=== PATIENT | female | born 1985 | race Caucasian/White ===

== ENCOUNTER 2017-02-10 10:46 | Day surgery (SDC) | payer MEDICAID ==
[2017-02-07 16:10] VITALS: BMI 32.2
[2017-02-08 14:00] LABS: ADD SCAN DIFF NO
[2017-02-08 14:04] LABS: BASOPHILS % 0.1 % (0.0-2.0); EOSINOPHILS # 0.3 10^3/ul (0.0-0.5); EOSINOPHILS % 4.6 % (0.0-7.0); HEMATOCRIT 39.1 % (37.0-47.0); HEMOGLOBIN 13.1 g/dl (12.0-16.0); LYMPHOCYTES # 3.4 10^3/ul (0.8-2.9); MEAN CORPUSCULAR HEMOGLOBIN 29.5 pg (29.0-33.0); MEAN CORPUSCULAR HGB CONC 33.5 g/dl (32.0-37.0); MEAN CORPUSCULAR VOLUME 88.1 fl (82.0-101.0); MEAN PLATELET VOLUME 10.1 fl (7.4-10.4); MONOCYTE # 0.5 10^3/ul (0.3-0.9); MONOCYTES % 6.7 % (0.0-11.0); NEUTROPHIL # 2.6 10^3/ul (1.6-7.5); NEUTROPHILS % 38.5 % (39.0-77.0); PLATELET COUNT 273 10^3/UL (140-415); RED BLOOD COUNT 4.44 10^6/ul (4.20-5.40); RED CELL DISTRIBUTION WIDTH 12.8 % (11.5-14.5); WHITE BLOOD COUNT 6.7 10^3/ul (4.8-10.8)
[2017-02-08 14:18] LABS: INR 0.97; PARTIAL THROMBOPLASTIN TIME 27.5 Sec (25.0-35.0); PROTIME 12.9 Sec (12.2-14.2)
[2017-02-08 14:23] LABS: ALBUMIN 4.1 g/dl (3.3-4.9)
[2017-02-08 14:26] LABS: ALBUMIN/GLOBULIN RATIO 1.28; BILIRUBIN,INDIRECT 0.1 mg/dl (0-1.1); BILIRUBIN,TOTAL 0.1 mg/dl (0.2-1.3); TOTAL PROTEIN 7.3 g/dl (6.1-8.1)
[2017-02-08 14:33] LABS: CALCIUM 9.5 mg/dl (8.4-10.2); CREATININE 0.6 mg/dl (0.44-1.00); POTASSIUM 4.3 mmol/L (3.5-5.1)
--- NOTE | 2017-02-09 18:18 | PREOPHP ---
DATE OF ADMISSION: 02/10/2017 REASON FOR ADMISSION: Patient is to be admitted tomorrow for laparoscopic bilateral tubal ligation, 02/10/2017. HISTORY OF PRESENT ILLNESS: This is a 31-year-old female, 3, para 3, who had 3 normal vagin al deliveries and has requested sterilization on the basis of multiparity. She is brought in for a laparoscopic bilateral tubal ligation under general anesthesia. The procedure was discussed with th e patient in the office at great length. Alternatives, benefits, risks, and possible complications, as well as 1% failure rate, were discussed with her. She was allowed to ask questions, and all her questions were answered to her satisfaction. She signed the appropriate surgical informed consent. PAST MEDICAL HISTORY: The patient denies any medical problems including diabetes, cardiac disease, liver disease, renal disease, thyroid disease, and neurological problems. ALLERGIES: SHE HAS NO KNOWN ALLERGIES. MEDICATIONS: Takes no medications on a regular basis. FAMILY HISTORY: Noncontributory. REVIEW OF SYSTEMS: A 12-point review of systems is noncontributory. PHYSICAL EXAMINATION: GENERAL: Well-developed and nourished, in no distress, alert and oriented x3 with a height of 5 fee t 2 inches, and weight of 175 pounds. VITAL SIGNS: Showed temperature to be 98, blood pressure 112/78, respirations 16 per minute, the pu lse is 80/minute, regular. HEENT: Within normal limits. Pupils are PERRLA. NECK: Supple. Thyroid is nonpalpable Lymph nodes nonpalpable. BREASTS: Show no masses or lumps. Nipples are normal. LUNGS: Clear to percussion and auscultation. HEART: Normal sinus rhythm without murmur. ABDOMEN: Soft. There are no organomegalies or hernias. PELVIC: Normal external genitalia. Vagina is normal. Cervix is normal without lesions. Bimanual exam: The uterus small, firm, in the midline. There are no adnexal masses present. EXTREMITIES: Within normal limits. NEUROLOGIC: Also normal. IMPRESSION: Multiparity. PLAN: Patient is to be admitted for laparoscopic bilateral tubal ligation. Dictated By: DEBBI YEE/JAYLA Conf#: [id number] DID#: [id number]
[2017-02-10] VITALS (12 sets, daily range): BP systolic 110–124; BP diastolic 72–83; PULSE 60–97; RESP 14–23; Ht 162.6 cm; Wt 81.0 kg
[~2017-02-10] VITALS: Ht 162.6 cm; Wt 81.0 kg
[~2017-02-10 10:46] MED LIST: ALBU8.5H5 INH; AZIT250T94 PO; BENZ100C70 PO; BUPIVACAINE 0.5%/EPI (SDV) 30 ML INJ INJ ONE; HYDR-3498 PO; ONDANSETRON 4 MG INJ ONE; PRED20TA PO; PROM6.25 PO
[2017-02-10] MEDS ORDERED: BUPIVACAINE 0.5%/EPI (SDV) 30 ML INJ ONE (11:18)
[2017-02-10] MEDS ORDERED: FENTAnyl 50 MCG/ML VIAL ONE (13:13)
[2017-02-10] MEDS ORDERED: MIDAZOLAM 1 MG/ML 2 ML INJ ONE (13:13)
[2017-02-10] MEDS ORDERED: morphine 10 MG INJ ONE (13:47)
--- NOTE | 2017-02-10 14:01 | PD.PPDC ---
[facility] Discharge Instruction Diagnosis Final Diagnosis: Multiparity BTL Condition Patient Condition: Good Diet Diet: Resume Regular Diet Activity/Restrictions Activity: Normal Activity May Shower Wound/Drain Care Instructions Wound/Drain Care Instructions: Keep clean and dry Follow-up Follow-up with Physician: 1, Week/Weeks Return to clinic for [facility] Instructions: Fever greater than 101 Worsening abdominal pain More than 2 pads per hour Unable to tolerate diet Surgical Instructions: Incisional Drainage Incisional Redness DEBBI GUEVARA MD Feb 10, 2017 14:01
[2017-02-10] MEDS ORDERED: LACTATED RINGER'S 1,000 ML IV SCH (14:02)
[2017-02-10] MEDS ORDERED: LIDOCAINE 2% (SDV) 5 ML INJ ONE (14:08)
[2017-02-10] MEDS ORDERED: GLYCOPYRROLATE 0.4 MG INJ ONE (14:08)
[2017-02-10] MEDS ORDERED: PROPOFOL 20 ML ONE (14:08)
[2017-02-10] MEDS ORDERED: NEOSTIGMINE 3 MG/3 ML SYRINGE ONE (14:08)
[2017-02-10] MEDS ORDERED: ROCURONIUM 50 MG INJ ONE (14:08)
[2017-02-10] MEDS ORDERED: CEFAZOLIN 1 GM INJ ONE (14:08)
--- NOTE | 2017-02-10 14:29 | OPR ---
DATE OF OPERATION: 02/10/2017 PREOPERATIVE DIAGNOSES: Multiparity. POSTOPERATIVE DIAGNOSIS: Multiparity. OPERATION PERFORMED: Laparoscopic bilateral tubal ligation. SURGEON: Debbi Ly MD. ANESTHESIA: General. ANESTHESIOLOGIST: Usman Garcia MD SPECIMENS: None. COMPLICATIONS: None. ESTIMATED BLOOD LOSS: Negligible. PROCEDURE AND FINDINGS: With the patient under general anesthesia, she was laid on the table in the dorsal lithotomy position. Bladder was catheterized and emptied. Her abdomen and upper thighs, pe rineum and vagina were prepped and then draped in the usual sterile fashion. A small 5 mm incision was done at the level of the umbilicus of the patient where a Veress needle was inserted while we we re tenting up the anterior abdominal wall. Once the tip of the needle was ascertained to be intrape ritoneal by the hanging drop of saline technique, it was then connected to the CO2 insufflator. Goo d pneumoperitoneum was obtained. Then, the needle was removed. A 5 mm trocar was passed in while w e were tenting up the anterior abdominal wall. Through this port, the laparoscope with the Endocame ra was inserted. The patient was placed in Trendelenburg position by Dr. Abreu. The uterus, tubes and ovaries were found to be normal. A second puncture was done under direct vision with another 5 mm trocar in the midline in the epigastric area. Through this port, a Kleppinger clamp was inserted with the gyrus device at 35 toth of power. The right tube was then picked up in its mid portion a nd burned through and through for about 1.5 cm. The same was done on the contralateral side. Pictu res were taken for documentation. There were no complications. All the instruments and CO2 was rem rene from the patient's abdomen. The incisions were infiltrated with 0.5% Marcaine with epinephrine , a total of 20 mL. They were closed with 4-0 Monocryl. Band-Aids were applied and the patient was taken to recovery room with all vital signs stable. EBL was negligible. Needle, sponge and instru ment count at the end of the procedure was correct twice. Dictated By: DEBBI YEE/NTS Conf#: [id number] DID#: [id number]
[2017-02-10] MEDS ORDERED: ONDANSETRON 4 MG INJ IV PRN ×2 (14:30)
[2017-02-10] MEDS ORDERED: FENTAnyl 50 MCG/ML VIAL IV PRN (14:30)
[2017-02-10] MEDS ORDERED: IBUPROFEN 600 MG TAB PO PRN (14:30)
[2017-02-10] MEDS ORDERED: morphine 2 MG INJ IV PRN (14:30)
[2017-02-10] MEDS ORDERED: DIPHENHYDRAMINE 50 MG INJ IV PRN (14:30)
[2017-02-10] MEDS ORDERED: morphine (1 MG/ML) 10ML SYRINGE IV PRN (14:30)
[2017-02-10] MEDS ORDERED: ACETAMINOPHEN 325 MG TAB PO PRN (14:30)
[2017-02-10] MEDS ORDERED: OXYCODONE/ACETAMINOPHEN (5/325) TAB PO PRN ×2 (14:30)
[2017-02-10] MEDS ORDERED: MEPERIDINE 25 MG INJ IV PRN (14:30)
== END 2017-02-10 15:56 | disposition home or self-care (01) ==
LOC: SDS 10:46
PROVIDERS: ATTEND Specialist
DX: Z30.2 Encounter for sterilization (principal)
CPT/HCPCS: 58670; 80053; 84703; 85025; 85610; 85730; 86850; 86900; 86901; J0690; J2175; J2250; J2270; J2405; J2710; J3010; Z7512; Z7610